=== PATIENT | male | born 1965 | race Caucasian/White ===

== ENCOUNTER 2017-01-23 17:16 | Emergency (ER) | payer BC ==
[2017-01-23] MEDS ORDERED: Acetaminophen 500 MG TAB ONE (17:25)
[2017-01-23 18:27] LABS: #Eosinphils 0.1 thou/uL (0.0-0.7); #Lymphocytes 0.4 thou/uL (1.20-3.40); #Monocytes 0.7 thou/uL (0.11-0.59); #Neutrophils 7.2 thou/uL (1.40-6.50); %Basophils 0.3 % (0.0-1.0); %Eosinophils 1.3 % (0.0-10.0); %Lymphocytes 4.5 % (21.0-51.0); %Monocytes 8.6 % (0.0-10.0); Hematocrit 41.6 % (42.0-52.0); Mean Platelet Volume 9.3 fL (7.4-10.4); Red Blood Cell (RBC) Count 4.64 mill/uL (4.70-6.10); White Blood Cell (WBC) Count 8.5 thou/uL (4.8-10.8)
[2017-01-23 18:50] LABS: ALT (SGPT) 42 U/L (8-55); AST (SGOT) 24 U/L (5-34); Alkaline Phosphatase 65 U/L (40-150); Anion Gap 14 mmol/L (10-20); BUN (Urea Nitrogen) 17 mg/dL (8.4-25.7); Calc. Creatinine Clearance 0 mL/min (70-130); Calcium 9.6 mg/dL (7.8-10.44); Carbon Dioxide 24 mmol/L (22-29); Chloride 102 mmol/L (98-107); Estimated GFR-MDRD 64; Globulin 3.9 g/dL (2.4-3.5); Protein, Total 7.9 g/dL (6.0-8.3)
[2017-01-23] MEDS ORDERED: Azithromycin 250 MG TAB ONE (19:12)
--- NOTE | 2017-01-23 21:26 | RAD ---
TWO VIEWS CHEST: Date: 01-23-17 Provided Clinical History: Dyspnea. FINDINGS: No comparisons. Heart appears enlarged. Median sternotomy changes are seen. No focal consolidation, p leural fluid, or pneumothorax apparent. IMPRESSION: Cardiomegaly without evidence for an acute cardiopulmonary process. POS: MAHAD
== END 2017-01-23 20:15 | disposition home or self-care (01) ==
LOC: ERS 17:16
DX: E86.0 Dehydration (principal); J11.1 Influenza due to unidentified influenza virus with other respiratory manifestations; I25.10 Atherosclerotic heart disease of native coronary artery without angina pectoris; I25.2 Old myocardial infarction; E11.9 Type 2 diabetes mellitus without complications; I85.00 Esophageal varices without bleeding; E78.5 Hyperlipidemia, unspecified; I10 Essential (primary) hypertension; Z86.711 Personal history of pulmonary embolism; F41.9 Anxiety disorder, unspecified
CPT/HCPCS: 36415; 71020; 80053; 85025; 86850; 86870; 86900; 86901; 94760; 96360; J7620

== ENCOUNTER 2017-12-15 13:10 | Observation (INO) | payer BC ==
[2017-12-15] MEDS ORDERED: Acetaminophen 500 MG TAB PO SCH (13:45)
[2017-12-15] MEDS ORDERED: diphenhydrAMINE 25 MG CAP PO SCH (13:45)
--- NOTE | 2017-12-15 18:19 | PDOC.FPRHP ---
- History of Present Illness Chief Complaint: anemia History of Present Illness: 52 y/o with ext PMH most sig for cirrhosis with portal htn and significant anemia requiring iron transfusions who has had multiple workups for presumed occult GI bleeding, with most recent negative egd/colon/capsule in 09/2017. Hgb wnl 12/05 and now < 7. Originally admitted for transfusion but found to have several antibodies. He is having some fatigue but no sig cp or sob. Has had some darker stools but no obvious hematochezia. No f/c. - Allergies/Adverse Reactions Allergies Allergy/AdvReac Type Severity Reaction Status Date / Time No Known Allergies Allergy Unverified 12/15/17 13:20 - Home Medications Comments: see APR - History PMHx: -MANUEL -cirrhosis -portal hypertension -HTN -HLP -CAD -DM PSHx: -4v CABG 2015 -multiple upper and lower endoscopies -hernia repair -appendectomy -knee surgery FHx: extensive CAD, CHF, DM history Social: -remote history of tobacco use; denies alcohol or drug use - Review of Systems General: reports: fatigue. denies: fever/chills Eyes: denies: eye pain, vision changes ENT: denies: nasal congestion, rhinorrhea Respiratory: denies: cough, congestion Cardiovascular: denies: chest pain, palpitation Gastrointestinal: denies: nausea, vomiting, diarrhea Skin: denies: rashes, lesions Musculoskeletal: denies: pain, tenderness Neurological: denies: numbness, syncope Psychological: denies: anxiety, depression - Vital signs BP: [] HR: [] RR: [] Tmax: [] Pox: []% on [] Wt: [] - Physical Exam Constitutional: NAD, awake, alert and oriented HEENT: conjunctiva clear, MMM -HEENT: pale conjunctiva Neck: supple, FROM Chest: no-tender to palpation, no lesions Heart: RRR, normal S1/S2, no murmurs/rubs/gallops, other (trace pedal edema) Lungs: CTAB, no respiratory distress, good air movement, no retractions Abdomen: soft, non-tender, bowel sounds present, no masses/distention Musculoskeletal: normal structure, normal tone, ROM grossly normal Neurological: no focal deficit, normal sensation Skin: no rash/lesions, capillary refill <2 seconds Heme/Lymphatic: no unusual bruising or bleeding, no purpura Psychiatric: normal mood and affect, good judgment and insight, intact recent and remote memory FMR H&P: Results - Labs Additional comment: labs and imaging reviewed. Significant for anemia < 7. FMR H&P: A/P - Problem List (1) Symptomatic anemia Current Visit: Yes Status: Acute Code(s): D64.9 - ANEMIA, UNSPECIFIED (2) MANUEL (nonalcoholic steatohepatitis) Current Visit: Yes Status: Chronic Code(s): K75.81 - NONALCOHOLIC STEATOHEPATITIS (MANUEL) (3) Cirrhosis Current Visit: Yes Status: Chronic Code(s): K74.60 - UNSPECIFIED CIRRHOSIS OF LIVER Qualifiers: Ascites presence: without ascites (4) Elevated LFTs Current Visit: Yes Status: Chronic Code(s): R94.5 - ABNORMAL RESULTS OF LIVER FUNCTION STUDIES (5) Diabetes mellitus Current Visit: Yes Status: Chronic Code(s): E11.9 - TYPE 2 DIABETES MELLITUS WITHOUT COMPLICATIONS (6) Essential hypertension Current Visit: Yes Status: Chronic Code(s): I10 - ESSENTIAL (PRIMARY) HYPERTENSION (7) Hyperlipidemia Current Visit: Yes Status: Chronic Code(s): E78.5 - HYPERLIPIDEMIA, UNSPECIFIED (8) CAD (coronary artery disease) Current Visit: Yes Status: Chronic Code(s): I25.10 - ATHSCL HEART DISEASE OF [place] CORONARY ARTERY W/O ANG PCTRS - Plan Symptomatic anemia -plan for 2 u prbc once typed and crossed -repeat labs in AM/post xfusion to monitor for appropriate response -hopefully will be able to be discharged tomorrow or Monday in order to make GI appointment on Monday. CAD/DM/HLP/HTN -continue home meds DVT/GI ppx. FMR H&P: Upper Level - Plan Date/Time: 12/15/17 1816 I, [], have evaluated this patient and agree with findings/plan as outlined by tax services intern resident. Pertinent changes/additions are listed here.
[2017-12-15] MEDS ORDERED: Acetaminophen 500 MG TAB PO PRN (20:28)
[2017-12-15] MEDS ORDERED: Stress 600 With Zinc 1 TAB PO SCH (21:00)
[2017-12-15] MEDS ORDERED: Magnesium Oxide 250 MG TAB PO SCH (21:00)
[2017-12-15] MEDS ORDERED: Atorvastatin Calcium 40 MG TAB PO SCH (21:00)
[2017-12-15] MEDS: Metoprolol Tartrate 25 MG TAB PO SCH ×2 (21:02→21:04)
[2017-12-15] MEDS: Ferrous Sulfate 325 MG TAB PO SCH (21:03)
[2017-12-15 22:43] VITALS: BMI 33.4
[2017-12-15] MEDS ORDERED: Lactated Ringer's 500 ML IV SCH ×2 (22:45→23:00)
[2017-12-15] MEDS ORDERED: traMADol HCl 50 MG TAB PO SCH (22:45)
[2017-12-16] MEDS ORDERED: Sodium Chloride 0.65% Nasal 44 ML BOT EA NARE PRN (00:01)
--- NOTE | 2017-12-16 05:40 | PDOC.FM ---
- Subjective Subjective: pt feeling well over night. no acute changes. no stools since admission. Pt has no complaints at this time. no fevers/chills, no cp no palpitations no nausea no vomiting - Objective MAR Reviewed: Yes Vital Signs & Weight: Vital Signs (12 hours) Temp Pulse Pulse Resp BP BP Pulse Ox 12/16/17 04:40 98.6 F 72 16 112/56 L 12/16/17 04:10 98.5 F 71 16 111/53 L 12/16/17 01:45 98.9 F 72 16 109/55 L 12/16/17 01:17 99.2 F 74 16 113/53 L 12/15/17 20:00 98.7 F 77 16 117/56 L 92 L Weight Weight 91.172 kg I&O: 12/14/17 12/15/17 12/16/17 06:59 06:59 06:59 Intake Total 850 Balance 850 <Jun Aldridge - Last Filed: 12/16/17 07:29> - Objective Vital Signs & Weight: Vital Signs (12 hours) Temp Pulse Pulse Resp BP BP 12/16/17 08:30 77 117/56 L 12/16/17 04:40 98.6 F 72 16 112/56 L 12/16/17 04:10 98.5 F 71 16 111/53 L 12/16/17 01:45 98.9 F 72 16 109/55 L 12/16/17 01:17 99.2 F 74 16 113/53 L Weight Weight 91.172 kg I&O: 12/15/17 12/16/17 12/17/17 06:59 06:59 06:59 Intake Total 2070 Output Total 1250 Balance 820 <Luis Miguel Ortiz - Last Filed: 12/16/17 10:50> Phys Exam - Physical Examination Constitutional: NAD HEENT: moist MMs, sclera anicteric Neck: supple, full ROM Respiratory: no wheezing, clear to auscultation bilateral Cardiovascular: RRR, no significant murmur Gastrointestinal: soft, non-tender Musculoskeletal: no edema, pulses present Neurological: normal sensation, moves all 4 limbs Psychiatric: normal affect, A&O x 3 Skin: no rash, normal turgor <Jun Aldridge - Last Filed: 12/16/17 07:29> Dx/Plan (1) Symptomatic anemia Code(s): D64.9 - ANEMIA, UNSPECIFIED Status: Acute (2) CAD (coronary artery disease) Code(s): I25.10 - ATHSCL HEART DISEASE OF [place] CORONARY ARTERY W/O ANG PCTRS Status: Chronic (3) Cirrhosis Code(s): K74.60 - UNSPECIFIED CIRRHOSIS OF LIVER Status: Chronic Qualifiers: Ascites presence: without ascites (4) Diabetes mellitus Code(s): E11.9 - TYPE 2 DIABETES MELLITUS WITHOUT COMPLICATIONS Status: Chronic (5) Essential hypertension Code(s): I10 - ESSENTIAL (PRIMARY) HYPERTENSION Status: Chronic (6) Hyperlipidemia Code(s): E78.5 - HYPERLIPIDEMIA, UNSPECIFIED Status: Chronic (7) MANUEL (nonalcoholic steatohepatitis) Code(s): K75.81 - NONALCOHOLIC STEATOHEPATITIS (MANUEL) Status: Chronic - Plan Plan: Symptomatic anemia A-Pt is finishing up 2nd u PRBC this AM. Reports feeling well over all. P-Will check H/h after transfusion and consider DC today so pt can make GI appt on Monday. -monitor stools for melena CAD -home meds DM -home meds HLP -home meds HTN -home meds DVT/GI- SCDs/Protonix dispo: potential DC today or tomorrow <Jun Aldridge - Last Filed: 12/16/17 07:29> (1) Symptomatic anemia Code(s): D64.9 - ANEMIA, UNSPECIFIED Status: Acute (2) MANUEL (nonalcoholic steatohepatitis) Code(s): K75.81 - NONALCOHOLIC STEATOHEPATITIS (MANUEL) Status: Chronic (3) Cirrhosis Code(s): K74.60 - UNSPECIFIED CIRRHOSIS OF LIVER Status: Chronic Qualifiers: Ascites presence: without ascites (4) Elevated LFTs Code(s): R94.5 - ABNORMAL RESULTS OF LIVER FUNCTION STUDIES Status: Chronic (5) Diabetes mellitus Code(s): E11.9 - TYPE 2 DIABETES MELLITUS WITHOUT COMPLICATIONS Status: Chronic (6) Essential hypertension Code(s): I10 - ESSENTIAL (PRIMARY) HYPERTENSION Status: Chronic (7) Hyperlipidemia Code(s): E78.5 - HYPERLIPIDEMIA, UNSPECIFIED Status: Chronic (8) CAD (coronary artery disease) Code(s): I25.10 - ATHSCL HEART DISEASE OF [place] CORONARY ARTERY W/O ANG PCTRS Status: Chronic <Luis Miguel Ortiz - Last Filed: 12/16/17 10:50> Attending Addendum - Attending Addendum Date/Time: 12/16/17 1050 I personally evaluated the patient and discussed the management with Dr. Aldridge. I agree with and repeated the History, Examination, Assessment and Plan documented above with any addition or exceptions noted below. Likely home if appropriate rise in Hgb. <Luis Miguel Ortiz - Last Filed: 12/16/17 10:50>
[2017-12-16] MEDS ORDERED: metFORMIN 500 MG TAB PO SCH (08:00)
[2017-12-16] MEDS: Ferrous Sulfate 325 MG TAB PO SCH (08:29)
[2017-12-16] MEDS: Metoprolol Tartrate 25 MG TAB PO SCH (08:29)
[2017-12-16] MEDS: Fish Oil 1,000 MG CAP PO SCH ×2 (08:30→12:15)
[2017-12-16] MEDS ORDERED: Pioglitazone HCl 15 MG TAB PO SCH (09:00)
[2017-12-16] MEDS ORDERED: Amlodipine 5 MG TAB PO SCH (09:00)
[2017-12-16] MEDS ORDERED: Amiodarone 200 MG TAB PO SCH (09:00)
[2017-12-16] MEDS ORDERED: Multivitamin W/ Minerals 1 TAB PO SCH (09:00)
[2017-12-16 12:50] LABS: Hemoglobin 8.9 g/dL (14.0-18.0); Mean Corpuscular HGB CONC 32.6 g/dL (32.0-36.0); Mean Corpuscular Hemoglobin 30.9 pg (27.0-31.0); Mean Platelet Volume 7.9 fL (7.4-10.4); Platelet Count 147 thou/uL (130-400); RBC Distribution Width 18.2 % (11.5-14.5); Red Blood Cell (RBC) Count 2.88 mill/uL (4.70-6.10); White Blood Cell (WBC) Count 5.7 thou/uL (4.8-10.8)
[2017-12-16 14:18] LABS: Anisocytosis SLIGHT = 6-15 cells (100X) (0-5/hpf); Band 4 % (5-11); Eosinophils 1 % (0-10); Lymphocytes 6 % (21-51); MDiff Complete? YES; Monocytes 7 % (0-10); Neutrophil 82 % (42-75); PLT Morphology Comment Appears Adequate; Poikilocytosis SLIGHT = 6-15 cells (100X) (0-5/hpf); Polychromasia SLIGHT = 2-3 cells (100X) (0-2/hpf)
[2017-12-16 15:42] VITALS: TEMP 97.5
[2017-12-16 15:59] VITALS: BP 115/67
--- NOTE | 2017-12-17 17:32 | DIS-2 ---
DATE OF ADMISSION: 12/15/2017 DATE OF DISCHARGE: 12/16/2017 RESIDENT: Jun Aldridge. ADMITTING ATTENDING: Dr. Luis Miguel Ortiz. DISCHARGE ATTENDING: Dr. Luis Miguel Ortiz. CONSULTATIONS: None. PROCEDURES: None. PRIMARY DIAGNOSIS: Symptomatic anemia. SECONDARY DIAGNOSES: Coronary artery disease, diabetes mellitus and hypertension. DISCHARGE MEDICATIONS: Vitamin B complex 150 mg p.o. at bedtime, magnesium 250 mg p.o. at bedtime, K rill oil 1 capsule p.o. a.c., ferrous sulfate 325 mg p.o. b.i.d., pantoprazole sodium 40 mg p.o. a.c. , amiodarone 200 mg p.o. daily, metformin 1000 mg p.o. b.i.d., pioglitazone 15 mg p.o. daily, metopro lol tartrate 25 mg b.i.d., atorvastatin calcium 80 mg p.o. at bedtime, famotidine 20 mg p.o. b.i.d., amlodipine 5 mg p.o. daily, multivitamin with folic acid, vitamin K 1 tab p.o. daily, [place] spray sunil al spray 1 spray each naris p.r.n. DISCONTINUED MEDICATIONS: None. HISTORY OF PRESENT ILLNESS AND HOSPITAL COURSE: This is a 52-year-old male with extensive past medic al history significant for cirrhosis due to portal hypertension and fatty liver disease presenting wi th significant anemia. Patient had required iron transfusions in the past and has had multiple rima ps for occult GI bleeding. Patient had had a recent EGD, colonoscopy, and PillCam workup in September and had normal hemoglobin in late November, but presented with a hemoglobin of 6.7. Patient wa s admitted for symptomatic anemia and transfused with 2 units of packed red blood cells to which hemo globin responded by increasing to 8.9. Patient reported clinical improvement with PRBC treatment and was deemed safe for discharge as he had a followup GI appointment on Monday. Otherwise, the patient 's chronic medical conditions including coronary artery disease, diabetes, HLP, hypertension were man aged with home medications. DISPOSITION: Stable. DISCHARGE INSTRUCTIONS: 1. Location: Home. 2. Diet: No restrictions. 3. Activity: As tolerated. 4. Follow up with primary care provider in 7 days and GI physician in 2 days as appointment was sche duled.
== END 2017-12-16 16:30 | disposition home or self-care (01) ==
LOC: ONC/OP 13:10 → ONC 13:12 → ONC/OP 17:29 → ONC 17:37
PROVIDERS: ADMIT Emergency Medicine; ATTEND Emergency Medicine
DX: D64.9 Anemia, unspecified (principal); K76.6 Portal hypertension; K74.60 Unspecified cirrhosis of liver; K75.81 Nonalcoholic steatohepatitis (NASH); I25.10 Atherosclerotic heart disease of native coronary artery without angina pectoris; I25.2 Old myocardial infarction; I12.9 Hypertensive chronic kidney disease with stage 1 through stage 4 chronic kidney disease, or unspecified chronic kidney disease; E11.22 Type 2 diabetes mellitus with diabetic chronic kidney disease; N18.2 Chronic kidney disease, stage 2 (mild); G47.00 Insomnia, unspecified; E78.5 Hyperlipidemia, unspecified; Z87.891 Personal history of nicotine dependence; Z79.899 Other long term (current) drug therapy; Z95.1 Presence of aortocoronary bypass graft; Z98.890 Other specified postprocedural states; Z79.84 Long term (current) use of oral hypoglycemic drugs
CPT/HCPCS: 36415; 36416; 36430; 85025; 86850; 86870; 86900; 86901; 86905; 86922; G0378; G0379; P9016

== ENCOUNTER 2018-02-20 10:04 | Day surgery (SDC) | payer BC ==
[2018-02-20] MEDS ORDERED: diphenhydrAMINE 25 MG CAP PO SCH (10:45)
[2018-02-20] MEDS ORDERED: Acetaminophen 500 MG TAB PO SCH (10:45)
[2018-02-20] MEDS ORDERED: Acetaminophen 500 MG TAB PO PRN (15:10)
[2018-02-20 19:13] LABS: #Basophils 0.1 thou/uL (0.0-0.2); #Eosinphils 0.1 thou/uL (0.0-0.7); #Lymphocytes 0.7 thou/uL (1.20-3.40); #Monocytes 0.4 thou/uL (0.11-0.59); #Neutrophils 3.2 thou/uL (1.40-6.50); %Basophils 1.5 % (0.0-1.0); %Eosinophils 2.3 % (0.0-10.0); %Lymphocytes 14.7 % (21.0-51.0); %Monocytes 9.8 % (0.0-10.0); %Neutrophils 71.7 % (42.0-75.0); Hemoglobin 9.4 g/dL (14.0-18.0); Mean Corpuscular HGB CONC 32.8 g/dL (32.0-36.0); Mean Corpuscular Hemoglobin 29.7 pg (27.0-31.0); Mean Corpuscular Volume 90.5 fL (78.0-98.0); Mean Platelet Volume 7.7 fL (7.4-10.4); Platelet Count 120 thou/uL (130-400); RBC Distribution Width 16.2 % (11.5-14.5); Red Blood Cell (RBC) Count 3.15 mill/uL (4.70-6.10); White Blood Cell (WBC) Count 4.5 thou/uL (4.8-10.8)
[2018-02-20 23:14] VITALS: BP 121/58; TEMP 99
== END 2018-02-20 23:21 | disposition home or self-care (01) ==
LOC: ONC/OP 10:04 → ONC 10:08 → ONC/OP 23:21
PROVIDERS: ATTEND Internal Medicine Hematology & Oncology
PROC: 30233N1 Transfusion of Nonautologous Red Blood Cells into Peripheral Vein, Percutaneous Approach (ICD-10-PCS; principal; 2018-02-20)
DX: D64.9 Anemia, unspecified (principal); D69.6 Thrombocytopenia, unspecified
CPT/HCPCS: 36415; 36430; 85025; 86850; 86900; 86901; 86922; P9016

== ENCOUNTER 2018-03-03 11:46 | Day surgery (SDC) | payer BC ==
[2018-03-03] MEDS ORDERED: Acetaminophen 500 MG TAB PO SCH (12:15)
[2018-03-03] MEDS ORDERED: diphenhydrAMINE 25 MG CAP PO SCH (12:15)
[2018-03-03 20:01] VITALS: BP 113/56; TEMP 98.7
[2018-03-03 20:08] LABS: #Eosinphils 0.1 thou/uL (0.0-0.7); #Lymphocytes 0.7 thou/uL (1.20-3.40); #Monocytes 0.5 thou/uL (0.11-0.59); %Eosinophils 3.1 % (0.0-10.0); %Lymphocytes 16.1 % (21.0-51.0); %Monocytes 10.6 % (0.0-10.0); %Neutrophils 69.2 % (42.0-75.0); Hemoglobin 9.3 g/dL (14.0-18.0); Mean Corpuscular HGB CONC 31.2 g/dL (32.0-36.0); Mean Corpuscular Hemoglobin 27.6 pg (27.0-31.0); Mean Corpuscular Volume 88.4 fL (78.0-98.0); Platelet Count 140 thou/uL (130-400); RBC Distribution Width 15.2 % (11.5-14.5); Red Blood Cell (RBC) Count 3.36 mill/uL (4.70-6.10); White Blood Cell (WBC) Count 4.3 thou/uL (4.8-10.8)
== END 2018-03-03 20:17 | disposition home or self-care (01) ==
LOC: SDC/OP 11:46 → ONC 12:07 → SDC/OP 20:17
PROVIDERS: ATTEND Internal Medicine Hematology & Oncology
PROC: 30283B1 Transfusion of Nonautologous 4-Factor Prothrombin Complex Concentrate into Vein, Percutaneous Approach (ICD-10-PCS; principal; 2018-03-03)
DX: D69.6 Thrombocytopenia, unspecified (principal)
CPT/HCPCS: 36415; 36430; 85025; 86850; 86900; 86901; 86922; P9016; Q0163

== ENCOUNTER 2018-05-08 14:39 | Outpatient (CLI) | payer BC ==
--- NOTE | 2018-05-08 15:48 | RAD ---
FExam: Chest 2 view HISTORY:History of pulmonary embolus, follow-up exam Comparison: 01/23/2017 FINDINGS: Lungs: Interstitial prominence bilaterally Cardiac silhouette:Evidence of prior sternotomy. Cardiac silhouette is stable. Pulmonary vessels: Mild prominence Pleural Spaces: Minimal pleural fluid is seen along the right pulmonary fissures. Pneumothorax: None Osseous abnormalities: None IMPRESSION: Mild edema.
== END 2018-05-08 14:40 | disposition home or self-care (01) ==
LOC: BICRAD 14:39
PROVIDERS: ATTEND Internal Medicine Cardiovascular Disease
DX: Z09 Encounter for follow-up examination after completed treatment for conditions other than malignant neoplasm (principal); Z86.711 Personal history of pulmonary embolism; J81.1 Chronic pulmonary edema
CPT/HCPCS: 71046

== ENCOUNTER 2022-02-01 05:57 | Inpatient (IN) | payer BC ==
[2022-02-01] MEDS ORDERED: Lidocaine 1% (PF) 30 ML VIAL ONE (06:26)
[2022-02-01] MEDS ORDERED: Heparin 10,000 UNITS/ 10 ML VIAL ONE (06:26)
[2022-02-01] MEDS ORDERED: Nitroglycerin 100MG/250ML BOT 250 ML ONE (06:26)
[2022-02-01] MEDS ORDERED: Protamine Sulfate 50 MG/5 ML VIAL ONE (06:26)
[2022-02-01] MEDS ORDERED: FENTANYL 50 MCG/ML 1 ML VIAL ONE (06:57)
[2022-02-01] MEDS ORDERED: Midazolam HCl 2 mg/2 ml Vial ONE (06:57)
[2022-02-01] MEDS ORDERED: Nitroglycerin 4.9 GM Bottle ONE (07:33)
[2022-02-01] MEDS ORDERED: Nitroglycerin 50 MG/250 ML BOT 250 ML ONE (07:45)
[2022-02-01] MEDS ORDERED: Heparin 25,000 units/D5W 500 ML ONE (08:16)
[2022-02-01] MEDS ORDERED: Sodium Chloride 0.9% 250 ML 200 ML IVPB SCH (09:15)
[2022-02-01] MEDS ORDERED: Sodium Chloride 0.65% Nasal 44 ML BOT EA NARE PRN (09:22)
[2022-02-01] MEDS ORDERED: Nitroglycerin 0.4 MG TAB (25 Tab Bottle) SL PRN (09:23)
[2022-02-01] MEDS ORDERED: Nitroglycerin 50 MG/250 ML BOT 250 ML IVPB SCH (09:30)
[2022-02-01] MEDS ORDERED: Heparin 25,000 units/D5W 500 ML IV SCH (09:30)
[2022-02-01 10:37] LABS: SARS-CoV-2 NAA Rapid Test Not Detected (NotDetected)
[2022-02-01] MEDS ORDERED: Iopamidol 370 76% 100 ML VIAL ONE (12:41)
[2022-02-01] MEDS: Sodium Chloride 0.9% 1,000 ML IV SCH ×3 (12:44→23:49)
[2022-02-01 13:03] VITALS: BMI 31.1
[2022-02-01] MEDS ORDERED: Iopamidol-370 76% 500 ML 1 ML ONE (13:24)
[2022-02-01] MEDS: Acetaminophen 325 MG TAB PO PRN ×2 (13:54→19:31)
[2022-02-01] MEDS: Icosapent Ethyl 1 GM CAPSULE PO SCH (16:43)
[2022-02-01] MEDS ORDERED: Ketorolac Tromethamine 30 MG/ML VIAL ONE (19:27)
[2022-02-01] MEDS ORDERED: Racepinephrine 2.25% 0.5 ML NEB ONE (20:23)
[2022-02-01] MEDS: Famotidine 20 MG TAB PO SCH (20:49)
[2022-02-01] MEDS: Atorvastatin Calcium 40 MG TAB PO SCH (20:49)
[2022-02-01] MEDS: Metoprolol Tartrate 25 MG TAB PO SCH (20:52)
[2022-02-01] MEDS: Zolpidem Tartrate 5 MG TAB PO SCH (20:52)
[2022-02-01] MEDS: Ferrous Sulfate 325 MG TAB PO SCH (20:52)
[2022-02-01] MEDS: Magnesium Oxide 250 MG TAB PO SCH (20:53)
[2022-02-01] MEDS: Cyclobenzaprine 10 MG TAB PO SCH (20:54)
[2022-02-01] MEDS: Stress 600 With Zinc 1 TAB PO SCH (21:15)
[2022-02-02] MEDS ORDERED: Propranolol 40 MG TAB PO SCH (09:00)
[2022-02-02] MEDS: Pioglitazone HCl 15 MG TAB PO SCH (09:07)
[2022-02-02] MEDS: Icosapent Ethyl 1 GM CAPSULE PO SCH ×2 (09:07→17:49)
[2022-02-02] MEDS: Ferrous Sulfate 325 MG TAB PO SCH ×2 (09:07→21:31)
[2022-02-02] MEDS: Multivitamin W/ Minerals 1 TAB PO SCH (09:08)
[2022-02-02] MEDS: Amiodarone 200 MG TAB PO SCH (09:08)
[2022-02-02] MEDS: Famotidine 20 MG TAB PO SCH ×2 (09:08→21:30)
[2022-02-02] MEDS: Aspirin 81 mg Enteric Coated Tablet PO SCH (09:08)
[2022-02-02] MEDS: Amlodipine 5 MG TAB PO SCH (09:08)
[2022-02-02] MEDS: Metoprolol Tartrate 25 MG TAB PO SCH (09:08)
[2022-02-02] MEDS: Sodium Chloride 0.9% 1,000 ML IV SCH ×2 (09:21→17:50)
[2022-02-02] MEDS: Acetaminophen 325 MG TAB PO PRN (10:40)
[2022-02-02] MEDS: Acetaminophen/Codeine 30-300mg Tablet PO PRN ×2 (13:28→22:45)
[2022-02-02] MEDS: Zolpidem Tartrate 5 MG TAB PO SCH (21:28)
[2022-02-02] MEDS: Cyclobenzaprine 10 MG TAB PO SCH (21:29)
[2022-02-02] MEDS: Propranolol 40 MG TAB PO SCH (21:29)
[2022-02-02] MEDS: Atorvastatin Calcium 40 MG TAB PO SCH (21:30)
[2022-02-02] MEDS: Magnesium Oxide 250 MG TAB PO SCH (21:30)
[2022-02-02] MEDS: Stress 600 With Zinc 1 TAB PO SCH (22:00)
[2022-02-03] MEDS: Sodium Chloride 0.9% 1,000 ML IV SCH ×2 (03:31→09:00)
[2022-02-03] MEDS: Acetaminophen/Codeine 30-300mg Tablet PO PRN (07:45)
[2022-02-03] MEDS ORDERED: metFORMIN 500 MG TAB PO SCH (08:00)
[2022-02-03 08:40] VITALS: BP 127/72; TEMP 99.3
[2022-02-03] MEDS: Aspirin 81 mg Enteric Coated Tablet PO SCH (08:54)
[2022-02-03] MEDS: Propranolol 40 MG TAB PO SCH (08:54)
[2022-02-03] MEDS: Pioglitazone HCl 15 MG TAB PO SCH (08:54)
[2022-02-03] MEDS: Icosapent Ethyl 1 GM CAPSULE PO SCH (08:54)
[2022-02-03] MEDS: Ferrous Sulfate 325 MG TAB PO SCH (08:55)
[2022-02-03] MEDS: Amiodarone 200 MG TAB PO SCH (08:55)
[2022-02-03] MEDS: Amlodipine 5 MG TAB PO SCH (08:55)
[2022-02-03] MEDS: Multivitamin W/ Minerals 1 TAB PO SCH (08:55)
[2022-02-03] MEDS: Famotidine 20 MG TAB PO SCH (08:55)
== END 2022-02-03 12:16 | disposition home or self-care (01) | DRG 287 ==
LOC: CCL 05:57 → CCU 07:59 → 2NO 02-02 21:06
PROVIDERS: ADMIT Internal Medicine Cardiovascular Disease; ATTEND Internal Medicine Cardiovascular Disease
PROC: 4A023N7 Measurement of Cardiac Sampling and Pressure, Left Heart, Percutaneous Approach (ICD-10-PCS; principal; 2022-02-01)
PROC: B2111ZZ Fluoroscopy of Multiple Coronary Arteries using Low Osmolar Contrast (ICD-10-PCS; 2022-02-01)
PROC: B2131ZZ Fluoroscopy of Multiple Coronary Artery Bypass Grafts using Low Osmolar Contrast (ICD-10-PCS; 2022-02-01)
PROC: B2151ZZ Fluoroscopy of Left Heart using Low Osmolar Contrast (ICD-10-PCS; 2022-02-01)
DX: I25.810 Atherosclerosis of coronary artery bypass graft(s) without angina pectoris (principal); K76.6 Portal hypertension; K74.60 Unspecified cirrhosis of liver; I10 Essential (primary) hypertension; E78.5 Hyperlipidemia, unspecified; I45.10 Unspecified right bundle-branch block; E11.9 Type 2 diabetes mellitus without complications; I48.0 Paroxysmal atrial fibrillation; I25.10 Atherosclerotic heart disease of native coronary artery without angina pectoris; E78.00 Pure hypercholesterolemia, unspecified; Z87.891 Personal history of nicotine dependence; Z95.1 Presence of aortocoronary bypass graft; Z86.711 Personal history of pulmonary embolism
CPT/HCPCS: 71275; 85347; 93459; 93976; 94660; 99152; 99153; C1769; J1644; J2001; J2250; J2720; J3010; J7050; Q9967; U0002

== ENCOUNTER 2022-02-25 07:31 | Day surgery (SDC) | payer BC ==
[2022-02-25] MEDS ORDERED: diphenhydrAMINE 25 MG CAP PO SCH ×2 (08:30→11:00)
[2022-02-25] MEDS ORDERED: Acetaminophen 500 MG TAB PO SCH ×2 (08:30→14:15)
[2022-02-25] MEDS ORDERED: Acetaminophen 500 MG TAB ONE ×2 (09:01→13:56)
[2022-02-25] MEDS ORDERED: diphenhydrAMINE 25 MG CAP ONE ×2 (09:01→10:40)
[2022-02-25] MEDS ORDERED: Furosemide 20 MG/2 ML VIAL SLOW IVP SCH (13:00)
[2022-02-25 17:10] VITALS: BP 127/57; TEMP 98.6
== END 2022-02-25 17:11 | disposition home or self-care (01) ==
LOC: ONC/OP 07:31
PROVIDERS: ATTEND Internal Medicine Hematology & Oncology
PROC: 30233N1 Transfusion of Nonautologous Red Blood Cells into Peripheral Vein, Percutaneous Approach (ICD-10-PCS; principal; 2022-02-25)
DX: D50.0 Iron deficiency anemia secondary to blood loss (chronic) (principal); I85.01 Esophageal varices with bleeding; D69.6 Thrombocytopenia, unspecified
CPT/HCPCS: 36430; 86850; 86870; 86900; 86901; 86922; 99211; G0463; J1940; P9016; P9054

== ENCOUNTER 2022-03-07 12:28 | Emergency (ER) | payer BC ==
[2022-03-07 13:11] LABS: #Eosinphils 0.1 thou/uL (0.0-0.7); #Lymphocytes 0.7 thou/uL (1.20-3.40); #Monocytes 0.5 thou/uL (0.11-0.59); #Neutrophils 3.9 thou/uL (1.40-6.50); %Basophils 0.6 % (0.0-1.0); %Lymphocytes 13.8 % (21.0-51.0); %Monocytes 9.3 % (0.0-10.0); %Neutrophils 74.3 % (42.0-75.0); Hemoglobin 5.8 g/dL (14.0-18.0); Mean Corpuscular HGB CONC 32.1 g/dL (32.0-36.0); Mean Corpuscular Hemoglobin 28.4 pg (27.0-31.0); Mean Corpuscular Volume 88.2 fl (78.0-98.0); Mean Platelet Volume 8.3 fL (7.4-10.4); Platelet Count 229 10x3/uL (130-400); RBC Distribution Width 15.5 % (11.5-14.5); Red Blood Cell (RBC) Count 2.05 mill/uL (4.70-6.10); White Blood Cell (WBC) Count 5.2 10x3/uL (4.8-10.8)
[2022-03-07 13:28] LABS: ALT (SGPT) 32 U/L (8-55); AST (SGOT) 19 U/L (5-34); Albumin 3.5 g/dL (3.5-5.0); Alkaline Phosphatase 51 U/L (40-110); Anion Gap 14 mmol/L (10-20); BUN (Urea Nitrogen) 26 mg/dL (8.4-25.7); Bilirubin, Total 0.5 mg/dL (0.2-1.2); Calc. Creatinine Clearance 0 mL/min (70-130); Calcium 8.9 mg/dL (7.8-10.44); Carbon Dioxide 23 mmol/L (22-29); Chloride 105 mmol/L (98-107); Estimated GFR 101; Globulin 2.8 g/dL (2.4-3.5); Glucose 298 mg/dL (70-105); Protein, Total 6.3 g/dL (6.0-8.3); Sodium 138 mmol/L (136-145)
[2022-03-07] MEDS ORDERED: Acetaminophen 325 MG TAB ONE (14:13)
[2022-03-07 16:14] LABS: Bilirubin Negative (Negative); Blood, Urine Negative (Negative); Clarity Clear (Clear); Glucose, Urine (Dipstick) 150 mg/dL (Negative); Ketone, Urine Negative (Negative); Leukocyte Negative Leu/uL (Negative); Nitrite Negative (Negative); Protein, Urine (Dipstick) Negative (Neg-Trace); Specific Gravity, Urine 1.022 (1.002-1.036); Urobilinogen Normal mg/dL (Less than 2); pH, Urine 5.5 (5.0-9.0)
[2022-03-07 20:00] LABS: #Eosinphils 0.1 thou/uL (0.0-0.7); #Lymphocytes 0.6 thou/uL (1.20-3.40); #Monocytes 0.4 thou/uL (0.11-0.59); #Neutrophils 2.8 thou/uL (1.40-6.50); %Basophils 0.3 % (0.0-1.0); %Lymphocytes 15.2 % (21.0-51.0); %Neutrophils 72.6 % (42.0-75.0); Hemoglobin 7.1 g/dL (14.0-18.0); Mean Corpuscular HGB CONC 33.8 g/dL (32.0-36.0); Mean Corpuscular Hemoglobin 29.8 pg (27.0-31.0); Mean Corpuscular Volume 88.4 fl (78.0-98.0); Mean Platelet Volume 8.3 fL (7.4-10.4); Platelet Count 164 10x3/uL (130-400); RBC Distribution Width 14.8 % (11.5-14.5); Red Blood Cell (RBC) Count 2.38 mill/uL (4.70-6.10); White Blood Cell (WBC) Count 3.9 10x3/uL (4.8-10.8)
== END 2022-03-07 20:47 | disposition home or self-care (01) ==
LOC: ERS 12:28
DX: D64.9 Anemia, unspecified (principal); R07.9 Chest pain, unspecified; D72.819 Decreased white blood cell count, unspecified; E11.9 Type 2 diabetes mellitus without complications; I10 Essential (primary) hypertension; E78.5 Hyperlipidemia, unspecified; Z87.891 Personal history of nicotine dependence
CPT/HCPCS: 36415; 36430; 71045; 80053; 81003; 82248; 83615; 84100; 84484; 84550; 85025; 86850; 86900; 86901; 86922; 93005; P9016

== ENCOUNTER 2022-09-30 19:00 | Outpatient (CLI) | payer BC | END 2022-09-30 19:01 | disposition home or self-care (01) | LOC: SLEEPLAB 19:00 | PROVIDERS: ATTEND Family Medicine | DX: G47.33 Obstructive sleep apnea (adult) (pediatric) (principal); E66.9 Obesity, unspecified; I10 Essential (primary) hypertension; G47.61 Periodic limb movement disorder; R53.83 Other fatigue | CPT/HCPCS: 95811 ==

== ENCOUNTER 2023-08-04 08:02 | Outpatient (CLI) | payer BC | END 2023-08-04 08:03 | disposition home or self-care (01) | LOC: RAD 08:02 | PROVIDERS: ATTEND Internal Medicine | DX: D50.0 Iron deficiency anemia secondary to blood loss (chronic) (principal); I85.01 Esophageal varices with bleeding; Q27.33 Arteriovenous malformation of digestive system vessel | CPT/HCPCS: 71046 ==

== ENCOUNTER 2024-09-25 18:29 | Inpatient (IN) | payer BC ==
[2024-09-25 18:58] LABS: Actual Bicarbonate (HCO3v) 26.7 mEq/L (22-28); Base Excess 1.9 mEq/L (-2.0 to +3.0); Calcium, Ionized (venous) 1.10 mmol/L (1.16-1.32); Chloride (VBG) 105 mmol/L (98-106); Hematocrit-VBG 24 % (42.0-52.0); Hemoglobin (Hb) 8.0 g/dL (13.1-17.2); Potassium (VBG) 4.18 mmol/L (3.70-5.30); Sodium 139 mmol/L (133-146)
[2024-09-25 19:19] LABS: #Basophils Less than 0.03 10x3/uL (0.0-0.2); #Eosinophils Less than 0.03 10x3/uL (0.0-0.7); #Monocytes 0.24 10x3/uL (0.11-0.59); #Neutrophils 3.86 10x3/uL (1.40-6.50); %Basophils 0.2 % (0.0-1.0); %Eosinophils 0.2 % (0.0-10.0); %Lymphocytes 5.3 % (21.0-51.0); %Monocytes 5.5 % (0.0-10.0); %Neutrophils 88.1 % (42.0-75.0); Hematocrit 22.9 % (42.0-52.0); Hemoglobin 6.9 g/dL (14.0-18.0); Mean Corpuscular Hemoglobin 26.6 pg (27.0-31.0); Mean Corpuscular Volume 88.4 fL (78.0-98.0); Platelet Count 106 10x3/uL (130-400); Red Blood Cell (RBC) Count 2.59 mill/uL (4.70-6.10); White Blood Cell (WBC) Count 4.38 10x3/uL (4.8-10.8)
[2024-09-25 19:23] LABS: Bacteria/HPF None Seen HPF (None Seen); CAUTI Indications for Culture Alt mental st,lethar; Glucose, Urine (Dipstick) Greater than 1000 mg/dL (Negative); Leukocyte Negative Leu/uL (Negative); Protein, Urine (Dipstick) Negative (Neg-Trace); RBC/HPF None Seen HPF (0-3); Specific Gravity, Urine 1.020 (1.002-1.036); Urine Culture Reflex No No; WBC/HPF 0-3 HPF (0-3)
[2024-09-25 19:24] LABS: Cocaine Metabolite Screen Negative (Negative); THC/Cannabinoid Screen Negative (Negative); Tricyclic Screen PRELIM POSITIVE (Negative)
[2024-09-25 19:28] LABS: ALT (SGPT) 19 U/L (Less than 45); AST (SGOT) 16 U/L (11-34); Acetaminophen Less than 10 mcg/mL (Less than 10); Albumin 3.3 g/dL (3.1-4.5); Alkaline Phosphatase 81 U/L (40-110); Anion Gap 13 mmol/L (10-20); BUN (Urea Nitrogen) 22 mg/dL (8.4-25.7); Bilirubin, Total 0.3 mg/dL (0.3-1.2); CK (CPK) 30 U/L (30-200); Calc. Creatinine Clearance 0 mL/min (70-130); Calcium 8.3 mg/dL (7.8-10.44); Carbon Dioxide 27 mmol/L (22-29); Chloride 105 mmol/L (98-107); Globulin 2.7 g/dL (2.4-3.5); Glucose 216 mg/dL (70-105); Potassium 4.2 mmol/L (3.5-5.1); Salicylate Less than 8.0 mg/dL (Less than 8.0); Sodium 141 mmol/L (136-145)
[2024-09-25 19:58] LABS: Anisocytosis SLIGHT = 6-15 cells HPF (0-5); Platelet Adequacy Comment Platelets Decreased; Polychromasia MODERATE = 3-4 cells HPF (0-2)
[2024-09-25] MEDS ORDERED: Pantoprazole 40 MG VIAL ONE (20:50)
[2024-09-25] MEDS ORDERED: Etomidate 40 MG (20 mL) VIAL ONE (21:35)
[2024-09-25] MEDS ORDERED: Rocuronium Bromide 10 MG/ML (10ML VIAL) ONE (21:35)
[2024-09-25 22:05] LABS: Actual Bicarbonate (HCO3a) 28.8 mEq/L (22-28); Analyzer IN Cardio ER; Base Excess (BEa) 5.1 mEq/L (-2.0 to +3.0); CO2 Tension 38.8 mmHg (35.0-45.0); Calcium, Ionized (arterial) 1.12 mmol/L (1.12-1.30); Hematocrit-ABG 22 % (42.0-52.0); Hemoglobin (Hb) 7.4 g/dL (14.0-18.0); O2 Tension (PaO2), arterial 136.5 mmHg (80.0-100.0); Potassium - ABG Lab 3.99 mmol/L (3.70-5.30); pH, Arterial 7.489 (7.35-7.45)
[2024-09-25] MEDS ORDERED: Ventilator Sedation Protocol 1 EACH FS SCH (22:30)
[2024-09-25] MEDS ORDERED: Ondansetron PF 4 MG/2 ML Vial IVP PRN (22:36)
[2024-09-25] MEDS ORDERED: Calcium Carbonate 500 MG ChewTAB PO PRN (22:36)
[2024-09-25] MEDS ORDERED: Dextrose 50% Abboject 50 ML SYRINGE SLOW IVP PRN (22:38)
[2024-09-25] MEDS ORDERED: Glucagon 1 MG/ML KIT IM PRN (22:38)
[2024-09-25] MEDS ORDERED: DISCONTINUE PREVIOUS NARCOTIC PAIN MEDICATIONS AND BENZODIAZEPINES FS SCH (23:45)
[2024-09-25] MEDS ORDERED: Fentanyl BOLUS 100 ML IVPB PRN (23:45)
[2024-09-25] MEDS ORDERED: Propofol BOLUS 1,000 MG/100 ML VIAL IV PRN (23:45)
[2024-09-26] MEDS: Pantoprazole 40 MG VIAL IVP SCH ×2 (00:06→07:54)
[2024-09-26 00:35] VITALS: BMI 26.5
[2024-09-26 00:57] LABS: Magnesium 1.2 mg/dL (1.6-2.6)
[2024-09-26] MEDS: Magnesium 2 GM/50 ML(in water) 2 GM in Premix 1 BAG IVPB SCH (02:07)
[2024-09-26] MEDS: Calcium Chloride 1 GM/10 ML Abboject SYRINGE IVP SCH (02:18)
[2024-09-26 05:40] LABS: AST (SGOT) 19 U/L (11-34)
[2024-09-26 05:41] LABS: ALT (SGPT) 18 U/L (Less than 45); Albumin 3.0 g/dL (3.1-4.5); Alkaline Phosphatase 72 U/L (40-110); Anion Gap 16 mmol/L (10-20); BUN (Urea Nitrogen) 16 mg/dL (8.4-25.7); Bilirubin, Total 0.4 mg/dL (0.3-1.2); Calc. Creatinine Clearance 170 mL/min (70-130); Calcium 8.9 mg/dL (7.8-10.44); Carbon Dioxide 26 mmol/L (22-29); Chloride 95 mmol/L (98-107); Globulin 3.9 g/dL (2.4-3.5); Glucose 129 mg/dL (70-105); Magnesium 1.8 mg/dL (1.6-2.6); Potassium 2.8 mmol/L (3.5-5.1); Sodium 134 mmol/L (136-145)
[2024-09-26 06:33] LABS: #Basophils Less than 0.03 10x3/uL (0.0-0.2); #Eosinophils 0.04 10x3/uL (0.0-0.7); #Monocytes 0.23 10x3/uL (0.11-0.59); #Neutrophils 2.43 10x3/uL (1.40-6.50); %Basophils 0.3 % (0.0-1.0); %Eosinophils 1.4 % (0.0-10.0); %Lymphocytes 6.5 % (21.0-51.0); %Monocytes 7.8 % (0.0-10.0); %Neutrophils 83.0 % (42.0-75.0); Hematocrit 18.9 % (42.0-52.0); Hemoglobin 6.3 g/dL (14.0-18.0); Mean Corpuscular Hemoglobin 27.8 pg (27.0-31.0); Mean Corpuscular Volume 83.3 fL (78.0-98.0); Platelet Count 90 10x3/uL (130-400); Red Blood Cell (RBC) Count 2.27 mill/uL (4.70-6.10); White Blood Cell (WBC) Count 2.93 10x3/uL (4.8-10.8)
[2024-09-26 07:23] LABS: Actual Bicarbonate (HCO3a) 27.4 mEq/L (22-28); Base Excess (BEa) 6.1 mEq/L (-2.0 to +3.0); CO2 Tension 26.5 mmHg (35.0-45.0); Calcium, Ionized (arterial) 1.15 mmol/L (1.12-1.30); Hematocrit-ABG 22 % (42.0-52.0); Hemoglobin (Hb) 7.4 g/dL (14.0-18.0); O2 Tension (PaO2), arterial 60.3 mmHg (80.0-100.0); Potassium - ABG Lab 2.87 mmol/L (3.70-5.30)
[2024-09-26 07:27] LABS: ALV-art Gradient 191.775 mmHg (0-20); Puncture Site Right Radial artery; pH, Arterial 7.632 (7.35-7.45)
[2024-09-26] MEDS: Potassium Chloride 20 MEQ in Premix 1 BAG IVPB SCH (07:53)
[2024-09-26] MEDS: Sodium Ferric Gluconate 250 MG in Sodium Chloride 0.9% 250 ML 250 ML IVPB SCH (12:39)
[2024-09-26 18:41] LABS: Magnesium 1.7 mg/dL (1.6-2.6); Potassium 4.1 mmol/L (3.5-5.1)
[2024-09-27 04:28] LABS: #Basophils Less than 0.03 10x3/uL (0.0-0.2); #Eosinophils 0.06 10x3/uL (0.0-0.7); #Monocytes 0.57 10x3/uL (0.11-0.59); #Neutrophils 6.29 10x3/uL (1.40-6.50); %Basophils 0.1 % (0.0-1.0); %Eosinophils 0.8 % (0.0-10.0); %Lymphocytes 4.1 % (21.0-51.0); %Monocytes 7.9 % (0.0-10.0); %Neutrophils 86.7 % (42.0-75.0); Hematocrit 23.2 % (42.0-52.0); Hemoglobin 7.3 g/dL (14.0-18.0); Mean Corpuscular Hemoglobin 27.4 pg (27.0-31.0); Mean Corpuscular Volume 87.2 fL (78.0-98.0); Platelet Count 105 10x3/uL (130-400); Red Blood Cell (RBC) Count 2.66 mill/uL (4.70-6.10); White Blood Cell (WBC) Count 7.26 10x3/uL (4.8-10.8)
[2024-09-27 04:35] LABS: Anion Gap 12 mmol/L (10-20); BUN (Urea Nitrogen) 10 mg/dL (8.4-25.7); Calc. Creatinine Clearance 143 mL/min (70-130); Calcium 7.8 mg/dL (7.8-10.44); Carbon Dioxide 27 mmol/L (22-29); Chloride 99 mmol/L (98-107); Glucose 158 mg/dL (70-105); Magnesium 1.5 mg/dL (1.6-2.6); Potassium 4.0 mmol/L (3.5-5.1); Sodium 134 mmol/L (136-145)
[2024-09-27] MEDS: Magnesium 2 GM/50 ML(in water) 2 GM in Premix 1 BAG IVPB SCH (07:47)
[2024-09-27 14:23] LABS: Hematocrit 25.0 % (42.0-52.0); Hemoglobin 7.7 g/dL (14.0-18.0)
[2024-09-27] MEDS ORDERED: DC Sedation Protocol FS SCH (15:21)
[2024-09-27] MEDS: Pantoprazole 40 MG VIAL IVP SCH (20:57)
[2024-09-27] MEDS ORDERED: Dextrose 50% Abboject 50 ML SYRINGE SLOW IVP PRN (21:27)
[2024-09-27] MEDS ORDERED: Glucagon 1 MG/ML KIT IM PRN (21:27)
[2024-09-28 05:06] LABS: #Basophils Less than 0.03 10x3/uL (0.0-0.2); #Eosinophils 0.05 10x3/uL (0.0-0.7); #Monocytes 0.59 10x3/uL (0.11-0.59); #Neutrophils 5.33 10x3/uL (1.40-6.50); %Basophils 0.3 % (0.0-1.0); %Eosinophils 0.8 % (0.0-10.0); %Lymphocytes 4.7 % (21.0-51.0); %Monocytes 9.3 % (0.0-10.0); %Neutrophils 84.3 % (42.0-75.0); Hematocrit 24.0 % (42.0-52.0); Hemoglobin 7.1 g/dL (14.0-18.0); Mean Corpuscular Hemoglobin 26.3 pg (27.0-31.0); Mean Corpuscular Volume 88.9 fL (78.0-98.0); Platelet Count 113 10x3/uL (130-400); Red Blood Cell (RBC) Count 2.70 mill/uL (4.70-6.10); White Blood Cell (WBC) Count 6.33 10x3/uL (4.8-10.8)
[2024-09-28 05:08] LABS: Anion Gap 12 mmol/L (10-20); BUN (Urea Nitrogen) 7 mg/dL (8.4-25.7); Calc. Creatinine Clearance 122 mL/min (70-130); Calcium 8.4 mg/dL (7.8-10.44); Carbon Dioxide 25 mmol/L (22-29); Chloride 109 mmol/L (98-107); Glucose 163 mg/dL (70-105); Magnesium 1.8 mg/dL (1.6-2.6); Potassium 3.9 mmol/L (3.5-5.1); Sodium 142 mmol/L (136-145)
[2024-09-28] MEDS: Magnesium 2 GM/50 ML(in water) 2 GM in Premix 1 BAG IVPB SCH (08:40)
[2024-09-28 10:49] LABS: INR-International Normal Ratio 1.2; Prothrombin Time 14.8 sec (12.0-14.7)
[2024-09-28 14:54] LABS: Hematocrit 24.6 % (42.0-52.0); Hemoglobin 7.3 g/dL (14.0-18.0)
[2024-09-29 05:55] LABS: #Basophils 0.04 10x3/uL (0.0-0.2); #Eosinophils 0.10 10x3/uL (0.0-0.7); #Monocytes 0.45 10x3/uL (0.11-0.59); #Neutrophils 4.27 10x3/uL (1.40-6.50); %Basophils 0.7 % (0.0-1.0); %Eosinophils 1.9 % (0.0-10.0); %Lymphocytes 7.1 % (21.0-51.0); %Monocytes 8.4 % (0.0-10.0); %Neutrophils 80.0 % (42.0-75.0); Hematocrit 25.9 % (42.0-52.0); Hemoglobin 7.8 g/dL (14.0-18.0); Mean Corpuscular Hemoglobin 26.6 pg (27.0-31.0); Mean Corpuscular Volume 88.4 fL (78.0-98.0); Platelet Count 123 10x3/uL (130-400); Red Blood Cell (RBC) Count 2.93 mill/uL (4.70-6.10); White Blood Cell (WBC) Count 5.34 10x3/uL (4.8-10.8)
[2024-09-29 06:42] LABS: Anion Gap 12 mmol/L (10-20); BUN (Urea Nitrogen) 9 mg/dL (8.4-25.7); Calc. Creatinine Clearance 151 mL/min (70-130); Calcium 8.9 mg/dL (7.8-10.44); Carbon Dioxide 26 mmol/L (22-29); Chloride 106 mmol/L (98-107); Glucose 157 mg/dL (70-105); Magnesium 1.6 mg/dL (1.6-2.6); Potassium 3.9 mmol/L (3.5-5.1); Sodium 140 mmol/L (136-145)
[2024-09-29] MEDS ORDERED: PROPOFOL 20 ML ONE (07:56)
[2024-09-29] MEDS ORDERED: Ketamine In 0.9 % NaCl 50 MG/5 ML SYRINGE ONE (08:07)
[2024-09-29] MEDS: Magnesium 2 GM/50 ML(in water) 2 GM in Premix 1 BAG IVPB SCH (09:49)
[2024-09-30 05:48] LABS: #Basophils 0.04 10x3/uL (0.0-0.2); #Eosinophils 0.13 10x3/uL (0.0-0.7); #Monocytes 0.46 10x3/uL (0.11-0.59); #Neutrophils 4.20 10x3/uL (1.40-6.50); %Basophils 0.8 % (0.0-1.0); %Eosinophils 2.4 % (0.0-10.0); %Lymphocytes 8.1 % (21.0-51.0); %Monocytes 8.6 % (0.0-10.0); %Neutrophils 78.8 % (42.0-75.0); Hematocrit 27.3 % (42.0-52.0); Hemoglobin 8.2 g/dL (14.0-18.0); Mean Corpuscular Hemoglobin 26.4 pg (27.0-31.0); Mean Corpuscular Volume 87.8 fL (78.0-98.0); Platelet Count 132 10x3/uL (130-400); Red Blood Cell (RBC) Count 3.11 mill/uL (4.70-6.10); White Blood Cell (WBC) Count 5.33 10x3/uL (4.8-10.8)
[2024-09-30 06:32] LABS: Anion Gap 13 mmol/L (10-20); BUN (Urea Nitrogen) 10 mg/dL (8.4-25.7); Calc. Creatinine Clearance 143 mL/min (70-130); Calcium 9.0 mg/dL (7.8-10.44); Carbon Dioxide 27 mmol/L (22-29); Chloride 104 mmol/L (98-107); Glucose 170 mg/dL (70-105); Magnesium 1.6 mg/dL (1.6-2.6); Potassium 4.0 mmol/L (3.5-5.1); Sodium 140 mmol/L (136-145)
[2024-09-30] MEDS: Magnesium 2 GM/50 ML(in water) 2 GM in Premix 1 BAG IVPB SCH (08:38)
[2024-09-30] MEDS: Acetaminophen 325 MG (10.15 ML) UDCUP PO PRN (21:52)
[2024-10-01 05:58] LABS: #Basophils 0.06 10x3/uL (0.0-0.2); #Eosinophils 0.15 10x3/uL (0.0-0.7); #Monocytes 0.51 10x3/uL (0.11-0.59); #Neutrophils 4.61 10x3/uL (1.40-6.50); %Basophils 1.0 % (0.0-1.0); %Eosinophils 2.5 % (0.0-10.0); %Lymphocytes 7.4 % (21.0-51.0); %Monocytes 8.6 % (0.0-10.0); %Neutrophils 77.5 % (42.0-75.0); Hematocrit 28.8 % (42.0-52.0); Hemoglobin 8.7 g/dL (14.0-18.0); Mean Corpuscular Hemoglobin 26.7 pg (27.0-31.0); Mean Corpuscular Volume 88.3 fL (78.0-98.0); Platelet Count 145 10x3/uL (130-400); Red Blood Cell (RBC) Count 3.26 mill/uL (4.70-6.10); White Blood Cell (WBC) Count 5.95 10x3/uL (4.8-10.8)
[2024-10-01 06:12] LABS: Anion Gap 14 mmol/L (10-20); BUN (Urea Nitrogen) 13 mg/dL (8.4-25.7); Calc. Creatinine Clearance 112 mL/min (70-130); Calcium 9.2 mg/dL (7.8-10.44); Carbon Dioxide 27 mmol/L (22-29); Chloride 104 mmol/L (98-107); Glucose 178 mg/dL (70-105); Potassium 4.1 mmol/L (3.5-5.1); Sodium 141 mmol/L (136-145)
[2024-10-01] MEDS: Pantoprazole 40 MG DR.TAB PO SCH (09:33)
[2024-10-01 15:38] VITALS: BMI 25.9
[2024-10-02 06:17] LABS: #Basophils 0.08 10x3/uL (0.0-0.2); #Eosinophils 0.12 10x3/uL (0.0-0.7); #Monocytes 0.51 10x3/uL (0.11-0.59); #Neutrophils 4.44 10x3/uL (1.40-6.50); %Basophils 1.3 % (0.0-1.0); %Eosinophils 2.0 % (0.0-10.0); %Lymphocytes 9.9 % (21.0-51.0); %Monocytes 8.6 % (0.0-10.0); %Neutrophils 74.7 % (42.0-75.0); Hematocrit 28.5 % (42.0-52.0); Hemoglobin 8.5 g/dL (14.0-18.0); Mean Corpuscular Hemoglobin 26.6 pg (27.0-31.0); Mean Corpuscular Volume 89.1 fL (78.0-98.0); Platelet Count 125 10x3/uL (130-400); Red Blood Cell (RBC) Count 3.20 mill/uL (4.70-6.10); White Blood Cell (WBC) Count 5.95 10x3/uL (4.8-10.8)
[2024-10-02 07:23] LABS: Anion Gap 17 mmol/L (10-20); BUN (Urea Nitrogen) 18 mg/dL (8.4-25.7); Calc. Creatinine Clearance 105 mL/min (70-130); Calcium 9.0 mg/dL (7.8-10.44); Carbon Dioxide 25 mmol/L (22-29); Chloride 104 mmol/L (98-107); Glucose 191 mg/dL (70-105); Potassium 4.2 mmol/L (3.5-5.1); Sodium 142 mmol/L (136-145)
[2024-10-02] MEDS ORDERED: LAMOTRIGINE 100 MG PO SCH (09:00)
[2024-10-02] MEDS: glipiZIDE XL 10 mg ER.TAB PO SCH (09:09)
[2024-10-02] MEDS: Isosorbide Mononitrate 30 MG ER.TAB.S PO SCH (09:09)
[2024-10-02] MEDS: Losartan 25 MG TAB PO SCH (09:10)
[2024-10-02] MEDS: Metoprolol Succinate XL 25 MG ER.TAB PO SCH (09:10)
[2024-10-02] MEDS: Ferrous Sulfate 325 MG TAB PO SCH (09:10)
[2024-10-02 13:06] VITALS: BP 121/59; TEMP 98.4
== END 2024-10-02 15:08 | DRG 917 ==
LOC: ERS 18:29 → CCU 21:29 → IMCU/EMU 09-27 18:57 → 2NO 09-29 17:20 → T4-B 09-30 18:47
PROVIDERS: ADMIT Student in an Organized Health Care Education/Training Program; ATTEND Internal Medicine
PROC: 30233N1 Transfusion of Nonautologous Red Blood Cells into Peripheral Vein, Percutaneous Approach (ICD-10-PCS; principal; 2024-09-25)
DX: T43.012A Poisoning by tricyclic antidepressants, intentional self-harm, initial encounter (principal); G93.41 Metabolic encephalopathy; J96.01 Acute respiratory failure with hypoxia; I85.00 Esophageal varices without bleeding; E87.20 Acidosis, unspecified; D61.818 Other pancytopenia; Z79.899 Other long term (current) drug therapy; D50.9 Iron deficiency anemia, unspecified; K76.0 Fatty (change of) liver, not elsewhere classified; I25.10 Atherosclerotic heart disease of native coronary artery without angina pectoris; E11.9 Type 2 diabetes mellitus without complications; I48.91 Unspecified atrial fibrillation; E83.42 Hypomagnesemia; E87.6 Hypokalemia; I48.0 Paroxysmal atrial fibrillation; Z95.5 Presence of coronary angioplasty implant and graft; F32.9 Major depressive disorder, single episode, unspecified
CPT/HCPCS: 31500; 36415; 36416; 36430; 36600; 51702; 71045; 80048; 80053; 80306; 80307; 81001; 82550; 82805; 83735; 84100; 84443; 84484; 85025; 85610; 86850; 86900; 86901; 86922; 93005; 93010; 94002; 94003; 94760; 96365; 96366; 96368; 96375; A4217; J1815; J2470; J2704; J2916; J3475; J3480; J3490; J7050; J7070; P9016